=== PATIENT | male | born 1955 | race Hispanic/Latino ===

== ENCOUNTER → 2021-11-19 | Outpatient (CLI) | payer OTHER ==
[~2021-11-19] VITALS: Ht 177.8 cm; Wt 89.6 kg
[~2021-11-19] MED LIST: AMLO-258 PO; DOXA4TAB3 PO; LISI1TAB51 PO; METF-444 PO; METO200T49 PO; SIMV40TA59 PO
[2021-11-19 14:05] LABS: BASOPHILS % (AUTO) 0.8 % (0.0-5.0); EOSINOPHILS % (AUTO) 3.5 % (0.0-8.0); HEMATOCRIT 38.4 % (42-54); LYMPHOCYTES % (AUTO) 16.3 % (21.0-51.0); MEAN CORPUSCULAR HGB CONC 33.1 g/dL (32.0-36.0); MEAN CORPUSCULAR VOLUME 84.6 fL (79-99); MONOCYTES % (AUTO) 11.6 % (3.0-13.0); NEUTROPHILS % (AUTO) 67.6 % (40.0-77.0); PLATELET COUNT (AUTO) 244 K/uL (130-400); RED BLOOD CELL COUNT(AUTO) 4.54 MIL/uL (4.50-6.20); RED CELL DISTRIBUTION WIDTH 13.2 % (11.0-15.5); WHITE BLOOD COUNT (AUTO) 6.3 K/uL (4.8-10.8)
[2021-11-19 14:09] LABS: APPEARANCE,URINE CLEAR (CLEAR); BILIRUBIN,URINE NEGATIVE (NEGATIVE); COLOR,URINE YELLOW (YELLOW); GLUCOSE, URINE (UA) NEGATIVE (NEGATIVE); KETONES,URINE NEGATIVE (NEGATIVE); LEUKOCYTE ESTERASE ,URINE NEGATIVE (NEGATIVE); NITRATE,URINE NEGATIVE (NEGATIVE); OCCULT BLOOD,URINE TRACE-INTACT (NEGATIVE); PROTEIN,URINE NEGATIVE (NEGATIVE); UROBILINOGEN,URINE 0.2 mg/dL (0.2-1.0)
[2021-11-19 14:13] LABS: CREATININE 0.8 mg/dL (0.5-1.5); POTASSIUM 3.9 mmol/L (3.5-5.1)
[2021-11-19 14:16] LABS: INR 0.95 (0.85-1.15); PROTHROMBIN TIME 10.4 SEC (9.6-11.6)
[2021-11-19 14:17] LABS: PARTIAL THROMBOPLASTIN TIME 27.7 SEC (26.3-35.5)
[2021-11-19 14:24] LABS: BACTERIA,URINE Few /HPF (None Seen); MUCUS,URINE Few LPF (None Seen); SQUAMOUS EPITHELIAL CELL,UR Few /HPF (0-2); WBC,URINE 0-1 /HPF (0-1)
[2021-11-19 14:25] LABS: B-TYPE NATRIURETIC PEPTIDE 119 pg/mL (0-100)
[2021-11-20 17:44] VITALS: BP 132/71
== END | disposition home or self-care (01) ==
LOC: DAH 10:00 → EDSTATUS 14:00
PROVIDERS: ATTEND Internal Medicine Cardiovascular Disease
DX: Z01.810 Encounter for preprocedural cardiovascular examination (principal); R01.1 Cardiac murmur, unspecified; R06.02 Shortness of breath; Z79.01 Long term (current) use of anticoagulants; Z79.899 Other long term (current) drug therapy; Z98.890 Other specified postprocedural states
CPT/HCPCS: 36415; 71045; 80048; 81001; 83880; 85025; 85610; 85730; 93005

== ENCOUNTER 2021-12-17 08:57 | Day surgery (SDC) | payer OTHER ==
[2021-12-14 11:51] LABS: BASOPHILS % (AUTO) 0.8 % (0.0-5.0); EOSINOPHILS % (AUTO) 2.9 % (0.0-8.0); HEMATOCRIT 40.1 % (42-54); LYMPHOCYTES % (AUTO) 12.9 % (21.0-51.0); MEAN CORPUSCULAR HEMOGLOBIN 28.2 pg (27.0-33.0); MEAN CORPUSCULAR HGB CONC 34.2 g/dL (32.0-36.0); MEAN CORPUSCULAR VOLUME 82.5 fL (79-99); MONOCYTES % (AUTO) 11.8 % (3.0-13.0); NEUTROPHILS % (AUTO) 71.1 % (40.0-77.0); PLATELET COUNT (AUTO) 265 K/uL (130-400); RED BLOOD CELL COUNT(AUTO) 4.86 MIL/uL (4.50-6.20); RED CELL DISTRIBUTION WIDTH 12.6 % (11.0-15.5); WHITE BLOOD COUNT (AUTO) 6.6 K/uL (4.8-10.8)
[2021-12-14 11:59] LABS: CREATININE 0.9 mg/dL (0.5-1.5); POTASSIUM 4.3 mmol/L (3.5-5.1)
[2021-12-14 12:00] LABS: APPEARANCE,URINE CLEAR (CLEAR); BILIRUBIN,URINE NEGATIVE (NEGATIVE); COLOR,URINE YELLOW (YELLOW); GLUCOSE, URINE (UA) NEGATIVE (NEGATIVE); KETONES,URINE NEGATIVE (NEGATIVE); LEUKOCYTE ESTERASE ,URINE NEGATIVE (NEGATIVE); NITRATE,URINE NEGATIVE (NEGATIVE); OCCULT BLOOD,URINE TRACE-INTACT (NEGATIVE); PROTEIN,URINE NEGATIVE (NEGATIVE); UROBILINOGEN,URINE 0.2 mg/dL (0.2-1.0)
[2021-12-14 12:15] LABS: B-TYPE NATRIURETIC PEPTIDE 69 pg/mL (0-100)
[2021-12-14 12:33] LABS: BACTERIA,URINE Rare /HPF (None Seen); RBC,URINE 0-1 /HPF (0-1); SQUAMOUS EPITHELIAL CELL,UR Rare /HPF (0-2); WBC,URINE 0-1 /HPF (0-1)
[2021-12-14 12:46] LABS: INR 0.94 (0.85-1.15); PROTHROMBIN TIME 10.3 SEC (9.6-11.6)
[2021-12-14 12:48] LABS: PARTIAL THROMBOPLASTIN TIME 28.4 SEC (26.3-35.5)
[2021-12-16 12:55] VITALS: BP 145/75
[2021-12-17] VITALS (8 sets, daily range): BP systolic 132–145; BP diastolic 70–85
[~2021-12-17] VITALS: Ht 177.8 cm; Wt 89.2 kg
[~2021-12-17 08:57] MED LIST changes: +0.9%NACL 1000ML 1,000 ML IV SCH
[2021-12-17] MEDS ORDERED: MIDAZOLAM HCL 1 MG/ML 2ML VIAL ONE (14:14)
[2021-12-17] MEDS ORDERED: IOHEXOL 350 MG/ML 100ML INFUS..BTL IV ONE (14:14)
[2021-12-17] MEDS ORDERED: FENTANYL CITRATE PF 50 MCG/1 ML 2ML VIAL ONE (14:14)
[2021-12-17] MEDS ORDERED: LIDOCAINE HCL 1% 10 ML VIAL ONE ×2 (14:14→14:19)
[2021-12-17] MEDS ORDERED: SODIUM BICARB 50MEQ 50ML VIAL 50 ML ONE (14:17)
[2021-12-17] MEDS ORDERED: IOHEXOL-350 50ML VIAL IV ONE (15:04)
[2021-12-17] MEDS ORDERED: 0.9% NACL 500ML IV.SOLN 500 ML IV SCH (15:30)
== END 2021-12-17 18:45 | disposition home or self-care (01) ==
LOC: DAH 08:57
PROVIDERS: ATTEND Internal Medicine Cardiovascular Disease
DX: I25.119 Atherosclerotic heart disease of native coronary artery with unspecified angina pectoris (principal); I10 Essential (primary) hypertension; I25.2 Old myocardial infarction; E11.9 Type 2 diabetes mellitus without complications; E78.5 Hyperlipidemia, unspecified; Z82.49 Family history of ischemic heart disease and other diseases of the circulatory system; Z72.89 Other problems related to lifestyle; Z79.84 Long term (current) use of oral hypoglycemic drugs; Z79.01 Long term (current) use of anticoagulants; Z79.899 Other long term (current) drug therapy
CPT/HCPCS: 36415; 71045; 80048; 81001; 82948 ×2; 83880; 85025; 85610; 85730; 93005; 93458; A4215; A4216; A4221; A4222; A4223 ×3; A4606; A4663; C1760; C1894 ×2; J1644; J2250; J3010; J3490 ×3; J7030; Q9965; Q9967 ×2; 99156; 99157

== ENCOUNTER → 2023-08-04 | Outpatient (CLI) | payer OTHER ==
[~2023-08-04] MED LIST changes: -0.9%NACL 1000ML 1,000 ML IV SCH; +ASPI-1443 PO; +ATEN25TA PO; +COLC0.6T73 PO; +FERR-72 PO; +INDO-15 PO; -LISI1TAB51 PO; +PANT40TA54 PO; +ROSU20TA73 PO; -SIMV40TA59 PO
[2023-08-04 12:48] LABS: BASOPHILS # (AUTO) 0.05 K/uL (0.00-0.20); BASOPHILS % (AUTO) 0.7 % (0.0-5.0); EOSINOPHILS % (AUTO) 1.4 % (0.0-8.0); HEMATOCRIT 30.6 % (42-54); IMMATURE GRANULOCYTE ABSOLUTE 0.03 K/uL (0-1); MEAN CORPUSCULAR HEMOGLOBIN 23.9 pg (27.0-33.0); MEAN CORPUSCULAR HGB CONC 30.7 g/dL (32.0-36.0); MEAN CORPUSCULAR VOLUME 77.7 fL (79-99); MONOCYTES # (AUTO) 0.8 K/uL (0.1-1.0); MONOCYTES % (AUTO) 11.2 % (3.0-13.0); NEUTROPHILS % (AUTO) 72.3 % (40.0-77.0); PLATELET COUNT (AUTO) 504 K/uL (130-400); RED BLOOD CELL COUNT(AUTO) 3.94 MIL/uL (4.50-6.20); RED CELL DISTRIBUTION WIDTH 17.7 % (11.0-15.5)
[2023-08-04 14:00] LABS: ALBUMIN 2.7 g/dL (3.5-5.0); BILIRUBIN,TOTAL 0.2 mg/dL (0.2-1.0); CREATININE 0.9 mg/dL (0.5-1.5); POTASSIUM 3.7 mmol/L (3.5-5.1); TOTAL PROTEIN, SERUM 7.6 g/dL (6.0-8.3); URIC ACID 6.4 mg/dL (2.6-7.2)
[2023-08-04 14:05] LABS: ERYTHROCYTE SEDIMENTATION RATE 120 MM/HR (0-20)
[2023-08-05 09:13] LABS: RHEUMATOID ARTHRITIS FACTOR 33.5 IU/mL (<14.0)
== END | disposition home or self-care (01) ==
LOC: RAH 12:11
PROVIDERS: ATTEND Physical Medicine & Rehabilitation
DX: M17.12 Unilateral primary osteoarthritis, left knee (principal); M21.862 Other specified acquired deformities of left lower leg; M25.562 Pain in left knee; M1A.9XX1 Chronic gout, unspecified, with tophus (tophi); M79.89 Other specified soft tissue disorders; M11.20 Other chondrocalcinosis, unspecified site
CPT/HCPCS: 36415; 73562; 80053; 82306; 82607; 82746; 84550; 85025; 85651; 86038; 86140; 86431